=== PATIENT | female | born 1960 | race African-American/Black ===

== ENCOUNTER 2022-12-03 00:28 | Emergency (ER) | payer OTHER ==
[~2022-12-03] VITALS: Ht 165.1 cm; Wt 46.0 kg
[2022-12-03 00:33] VITALS: BP 0/0; PULSE 0; RESP 0; O2SAT 0
== END 2022-12-03 00:47 ==
LOC: ER 00:28
DX: I46.9 Cardiac arrest, cause unspecified (principal); C18.9 Malignant neoplasm of colon, unspecified; Z85.9 Personal history of malignant neoplasm, unspecified
CPT/HCPCS: 82962; 31500 ×2; 92950; 99291; Z7610 ×3; 94002